=== PATIENT | female | born 1965 ===

== ENCOUNTER 2017-11-28 09:56 | Outpatient (CLI) | payer OTHER ==
[2017-11-28 17:49] LABS: BASOPHILS % (AUTO) 0.5 %; EOSINOPHILS # (AUTO) 0.2 10^3/uL (0.0-0.7); EOSINOPHILS % (AUTO) 2.6 %; HGB - HEMOGLOBIN 14.1 g/dL (12.0-16.0); LYMPHOCYTES # (AUTO) 2.2 10^3/uL (1.5-3.5); LYMPHOCYTES % (AUTO) 34.3 %; MEAN CORPUSCULAR HEMOGLOBIN 29.1 pg (27.0-31.0); MEAN CORPUSCULAR HGB CONC 33.3 g/dL (32.0-36.0); MEAN CORPUSCULAR VOLUME 87.2 fL (81.0-99.0); MEAN PLATELET VOLUME 8.9 fL (7.9-10.8); MONOCYTES # (AUTO) 0.6 10^3/uL (0.0-1.0); MONOCYTES % (AUTO) 8.8 %; NEUTROPHILS # (AUTO) 3.4 10^3/uL (1.5-6.6); NEUTROPHILS % (AUTO) 53.8 %; PLT - PLATELET COUNT 246 10^3/uL (130-450); RED BLOOD COUNT 4.84 10^6/uL (4.20-5.40); RED CELL DISTRIBUTION WIDTH 12.9 % (12.0-15.0); WHITE BLOOD COUNT 6.3 x10^3/uL (4.8-10.8)
[2017-11-28 18:51] LABS: ALBUMIN 4.2 g/dL (3.2-5.5); ALBUMIN/GLOBULIN RATIO 1.2 (1.0-2.2); ALKALINE PHOSPHATASE 85 IU/L (42-121); ALT ALANINE AMINOTRANSFERASE 33 IU/L (10-60); AST ASPARTATE AMINOTRANSFERASE 26 IU/L (10-42); BILIRUBIN,TOTAL 0.5 mg/dL (0.2-1.0); BUN - BLOOD UREA NITROGEN 14 mg/dL (6-20); CALCIUM 9.3 mg/dL (8.5-10.3); CARBON DIOXIDE - CO2 28 mmol/L (21-32); CHLORIDE 104 mmol/L (101-111); CHOL/HDL RATIO 3.8 (<4.4); CHOLESTEROL 173 mg/dL; CREATININE 0.9 mg/dL (0.4-1.0); GFR - MDRD 65 (>89); GLUCOSE 101 mg/dL (70-100); HDL CHOLESTEROL 46 mg/dL; LDL CHOLESTEROL,CALCULATED 111 mg/dL; LDL/HDL RATIO 2.4 (<4.4); SODIUM 138 mmol/L (135-145); TOTAL PROTEIN 7.6 g/dL (6.7-8.2); VLDL CHOLESTEROL 16 mg/dL
== END 2017-11-28 09:57 | disposition home or self-care (01) ==
LOC: LAB.F 09:56
PROVIDERS: ATTEND Family Medicine
DX: Z00.00 Encounter for general adult medical examination without abnormal findings (principal)
CPT/HCPCS: 36415; 80053; 80061; 83721; 85025

== ENCOUNTER 2017-12-14 11:45 | Outpatient (CLI) | payer OTHER ==
--- NOTE | 2017-12-15 12:50 | Mammography Report ---
DIGITAL SCREENING MAMMOGRAM: 12/14/2017 CLINICAL INDICATION: A 52-year-old with history of bilateral reduction, for screening. COMPARISON: 12/2014. TECHNIQUE: Routine CC and MLO projections were obtained of the breasts. FINDINGS: The breasts demonstrate scattered fibroglandular densities bilaterally. Coarse and punctate, typically benign calcifications are present. Postreduction changes are stable. No suspicious masses, clustered microcalcifications, or regions of architectural distortion are identified. IMPRESSION: BENIGN FINDINGS. RECOMMENDATION: ROUTINE ANNUAL SCREENING UNLESS OTHERWISE CLINICALLY INDICATED. BIRADS CATEGORY 2-BENIGN FINDINGS. STANDARD QUALIFYING STATEMENTS: 1. This examination was reviewed with the aid of Computer-Aided Detection (CAD). 2. A negative or benign imaging report should not delay biopsy if clinically suspicious findings are present. Consider surgical consultation if warranted. More than 5% of cancers are not identified by imaging. 3. Dense breasts may obscure an underlying neoplasm. TD: 12/15/2017 12:49
== END 2017-12-14 11:46 | disposition home or self-care (01) ==
LOC: DI 11:45
PROVIDERS: ATTEND Physician Assistant Medical
DX: Z12.31 Encounter for screening mammogram for malignant neoplasm of breast (principal)
CPT/HCPCS: 77067

== ENCOUNTER 2017-12-14 15:10 | Outpatient (CLI) | payer OTHER | END 2017-12-14 15:11 | disposition home or self-care (01) | LOC: LAB.F 15:10 | PROVIDERS: ATTEND Physician Assistant Medical | DX: Z53.9 Procedure and treatment not carried out, unspecified reason (principal) ==

== ENCOUNTER 2017-12-24 09:00 | Outpatient (CLI) | payer OTHER | END 2017-12-24 09:01 | disposition home or self-care (01) | LOC: LAB.R 09:00 | PROVIDERS: ATTEND Physician Assistant Medical | DX: Z12.11 Encounter for screening for malignant neoplasm of colon (principal) | CPT/HCPCS: 82270 ==

== ENCOUNTER 2017-12-26 10:15 | Outpatient (CLI) | payer OTHER ==
[2017-12-26 18:42] LABS: HB2 TOTAL 15.9 g/dL; HEMOGLOBIN A1C 0.54 g/dL; HEMOGLOBIN A1C % 5.3 % (4.6-6.2)
== END 2017-12-26 10:16 | disposition home or self-care (01) ==
LOC: LAB.F 10:15
PROVIDERS: ATTEND Physician Assistant Medical
DX: R73.01 Impaired fasting glucose (principal)
CPT/HCPCS: 36415; 83036

== ENCOUNTER 2023-12-14 09:03 | Outpatient (CLI) | payer OTHER ==
[2023-12-14 15:20] LABS: BASOPHILS # (AUTO) 0.1 10^3/uL (0.0-0.1); BASOPHILS % (AUTO) 0.7 %; EOSINOPHILS # (AUTO) 0.5 10^3/uL (0.0-0.7); EOSINOPHILS % (AUTO) 6.7 %; HCT - HEMATOCRIT 47.5 % (37.0-47.0); HGB - HEMOGLOBIN 15.3 g/dL (12.0-16.0); LYMPHOCYTES # (AUTO) 1.9 10^3/uL (1.5-3.5); LYMPHOCYTES % (AUTO) 23.2 %; MEAN CORPUSCULAR HEMOGLOBIN 29.1 pg (27.0-31.0); MEAN CORPUSCULAR HGB CONC 32.2 g/dL (32.0-36.0); MEAN CORPUSCULAR VOLUME 90.5 fL (81.0-99.0); MEAN PLATELET VOLUME 10.3 fL (7.9-10.8); MONOCYTES # (AUTO) 0.8 10^3/uL (0.0-1.0); MONOCYTES % (AUTO) 10.2 %; NEUTROPHILS # (AUTO) 4.8 10^3/uL (1.5-6.6); NEUTROPHILS % (AUTO) 59.1 %; PLT - PLATELET COUNT 300 10^3/uL (130-450); RED BLOOD COUNT 5.25 10^6/uL (4.20-5.40); WHITE BLOOD COUNT 8.1 x10^3/uL (4.8-10.8)
[2023-12-14 16:04] LABS: ALBUMIN 4.4 g/dL (3.2-5.5); ALBUMIN/GLOBULIN RATIO 1.3 (1.0-2.2); ALKALINE PHOSPHATASE 109 IU/L (42-121); ALT ALANINE AMINOTRANSFERASE 36 IU/L (10-60); AST ASPARTATE AMINOTRANSFERASE 25 IU/L (10-42); BILIRUBIN,TOTAL 0.6 mg/dL (0.2-1.0); BUN - BLOOD UREA NITROGEN 20 mg/dL (6-20); CALCIUM 9.9 mg/dL (8.5-10.3); CARBON DIOXIDE - CO2 28 mmol/L (21-32); CHLORIDE 104 mmol/L (101-111); CHOL/HDL RATIO 3.8 (<4.4); CHOLESTEROL 199 mg/dL; CREATININE 0.9 mg/dL (0.6-1.3); GFR - MDRD 64 (>89); GLUCOSE 104 mg/dL (74-104); HDL CHOLESTEROL 53 mg/dL; LDL CHOLESTEROL,CALCULATED 120 mg/dL; LDL/HDL RATIO 2.3 (<4.4); POTASSIUM 4.3 mmol/L (3.5-4.5); SODIUM 138 mmol/L (135-145); TOTAL PROTEIN 7.8 g/dL (6.4-8.9); TRIGLYCERIDES 132 mg/dL (48-352); VLDL CHOLESTEROL 26 mg/dL
== END 2023-12-14 09:04 | disposition home or self-care (01) ==
LOC: LAB.S 09:03
PROVIDERS: ATTEND Registered Nurse
DX: Z13.220 Encounter for screening for lipoid disorders (principal); Z13.9 Encounter for screening, unspecified; Z13.29 Encounter for screening for other suspected endocrine disorder
CPT/HCPCS: 36415; 80053; 80061; 83721; 84443; 85025

== ENCOUNTER 2024-02-05 08:15 | Day surgery (SDC) | payer OTHER ==
[2024-02-05] MEDS: LACTATED RINGERS 1,000 ML IV ONE ×2 (08:20→10:55)
--- NOTE | 2024-02-05 09:09 | ANESTHESIA ---
Pre-Anesthesia VS, & Labs - Diagnosis screening - Procedure colonoscopy Vital Signs: Temp Pulse Resp BP Pulse Ox O2 Flow Rate 36.2 C L 96 18 127/82 H 99 02/05/24 08:20 02/05/24 08:20 02/05/24 08:20 02/05/24 08:20 02/05/24 08:20 Height: 5 ft 3 in Weight (kg): 78.7 kg Body Mass Index: 30.7 BMI Classification: Obese - NPO >8 hours Last Fluid Intake: am prep - Is Patient ?: No - Lab Results Lab results reviewed: Yes Home Medications and Allergies Home Medications: Ambulatory Orders Aspirin [Aspirin Regimen] 81 mg PO DAILY 02/02/24 Cholecalciferol (Vitamin D3) [Vitamin D3] 1,250 mcg PO DAILY 02/02/24 Acyclovir [Zovirax] PO TID PRN 01/12/15 Albuterol Sulfate [Proair Hfa] 2 puffs PO Q6HR PRN 01/12/15 Cetirizine [ZyrTEC] 10 mg PO PRN PRN 01/12/15 Fluticasone 44 Mcg [Flovent] 2 puffs PO BID 01/12/15 Fluticasone [Flonase] 2 sprays NS DAILY 01/12/15 Aspirin [Aspirin Regimen] 81 mg PO DAILY 02/02/24 Cholecalciferol (Vitamin D3) [Vitamin D3] 1,250 mcg PO DAILY 02/02/24 Allergies/Adverse Reactions: Allergies Allergy/AdvReac Type Severity Reaction Status Date / Time montelukast sodium * Allergy Severe Edema Verified 01/12/15 19:18 [From Jose] Anes History & Medical History - Anesthetic History Anesthesia Complications: reports: No previous complications Family history of Anesthesia Complications: Denies Family history of Malignant Hyperthermia: Denies - Medical History Pulmonary: reports: Asthma Gastrointestinal: reports: GERD Urinary: reports: None Musculoskeletal: reports: None Endocrine/Autoimmune: reports: None Skin: reports: None Smoking Status: Never smoker - Surgical History Gynecologic: reports: Breast reduction Exam General: Alert, Oriented x3, Cooperative Dental: WNL Mouth Openin Fingerbreadth Neck Mobility: Normal Mallampati classification: II Thyromental Distance: 4-6 cm Respiratory: Lungs clear, Normal breath sounds, No respiratory distress Cardiovascular: Regular rate Neurological: Normal speech Mental/Cognitive Status: Alert/Oriented X3, Normal for patient Cognitive Status: Within normal limits Plan Anesthesia Type: Total IV Consent for Procedure(s) Verified and Reviewed: Yes Code Status: Attempt Resuscitation ASA classification: 2-Mild systemic disease Is this case an emergency?: No
[2024-02-05] MEDS ORDERED: PROPOFOL 500 MG/50 ML 500 MG/50 ML VIAL ONE (09:47)
[2024-02-05] MEDS ORDERED: MIDAZOLAM 2 MG/2 ML VIAL ONE (09:58)
[2024-02-05] MEDS ORDERED: LIDOCAINE-PF 2% 10 ML AMP SUBQ ONE (10:30)
[2024-02-05 11:24] VITALS: BP 101/73; O2SAT 100
--- NOTE | 2024-02-05 11:27 | ANESTHESIA POST OP EVALUATION ---
Anesthesia Post Eval - Post Anesthesia Eval Vitals: Last Vital Signs Temp 36.1 C L 02/05/24 10:55 Pulse 74 02/05/24 11:17 Resp 17 02/05/24 11:17 BP 101/73 02/05/24 11:17 Pulse Ox 100 02/05/24 11:17 O2 Flow Rate CV Function Including HR & BP: Stable Pain Control: Satisfactory Nausea & Vomiting: Negative Mental Status: Baseline Respiratory Status: Airway Patent Hydration Status: Satisfactory Anesthesia Complications: None
== END 2024-02-05 08:16 | disposition home or self-care (01) ==
LOC: SDS 08:15
PROVIDERS: ATTEND Surgery
DX: Z12.11 Encounter for screening for malignant neoplasm of colon (principal); K57.30 Diverticulosis of large intestine without perforation or abscess without bleeding; K64.1 Second degree hemorrhoids; J45.909 Unspecified asthma, uncomplicated; E66.9 Obesity, unspecified; Z68.31 Body mass index [BMI] 31.0-31.9, adult
CPT/HCPCS: 45378; J7120

== ENCOUNTER 2024-02-09 15:02 | Outpatient (CLI) | payer OTHER ==
--- NOTE | 2024-02-12 08:09 | Mammography Report ---
BILATERAL DIGITAL SCREENING MAMMOGRAM 3D/2D: 02/09/2024 CLINICAL: Routine screening. Comparison is made to exams dated: 12/14/2017 mammogram and 12/24/2014 mammogram - [facility]. There are scattered areas of fibroglandular density in both breasts (category b / 25%-50% glandular t issue). There are benign calcifications in both breasts. No significant masses, calcifications, or other findings are seen in either breast. There has been no significant interval change. IMPRESSION: BENIGN There is no mammographic evidence of malignancy. A 1 year screening mammogram is recommended. Based on the Tyrer Cuzick model (a risk assessment model) the patient's lifetime risk is 9.3% and her 10 year risk is 3.6%. According to the ACR, ACS, and NCCN guidelines, an annual breast MRI exam wagner g with mammogram is recommended if the patient's lifetime risk is 20% or greater. This exam was interpreted at Station ID: [id number]. NOTE: For mammograms, a report in lay terms will be sent to the patient. Approximately 15% of breast malignancies will not be visualized mammographically. In the management of a palpable breast mass, a negative mammogram must not discourage biopsy of a clinically suspicious lesion. Electronically Signed By: Sandra soriano/andreas:02/09/2024 17:11:07 letter sent: No_Letter ACR BI-RADS Category 2: Benign Finding(s) 3342F PARENCHYMAL PATTERN: (A) - The breast(s) demonstrate(s) scattered fibroglandular densities. BI-RADS CATEGORY: (2) - 2 RECOMMENDATION: (ANNUAL) - Recommend routine annual screening mammography. [id number] 1 year screening LATERALITY: (B)
== END 2024-02-09 15:03 | disposition home or self-care (01) ==
LOC: DI 15:02
PROVIDERS: ATTEND Registered Nurse
DX: Z12.31 Encounter for screening mammogram for malignant neoplasm of breast (principal); R92.323 Mammographic fibroglandular density, bilateral breasts